=== PATIENT | female | born 1975 | race Caucasian/White ===

== ENCOUNTER 2017-02-26 08:39 | Emergency (ER) | payer SELFPAY ==
[~2017-02-26] VITALS: Ht 165.1 cm; Wt 79.0 kg
[2017-02-26] MEDS ORDERED: KETOROLAC 60MG/2ML VIAL IM ONE (09:45)
[2017-02-26 11:40] VITALS: BP 110/71
== END 2017-02-26 11:43 | disposition home or self-care (01) ==
LOC: ER 09:26
DX: M54.12 Radiculopathy, cervical region (principal); Z98.890 Other specified postprocedural states
CPT/HCPCS: 72125; 81025; 96372; 99284; J1885; Z7610

== ENCOUNTER 2017-08-11 17:36 | Emergency (ER) | payer SELFPAY ==
[~2017-08-11] VITALS: Ht 160 cm; Wt 73.0 kg
[2017-08-11 17:38] VITALS: BP 118/75
[2017-08-11] MEDS ORDERED: IBUP-2028 PO (17:41)
== END 2017-08-11 20:56 | disposition left against medical advice (07) ==
LOC: ER 18:35
DX: Z53.21 Procedure and treatment not carried out due to patient leaving prior to being seen by health care provider (principal)

== ENCOUNTER 2018-06-04 11:35 | Emergency (ER) | payer OTHER ==
[~2018-06-04] VITALS: Ht 165.1 cm; Wt 75.0 kg
[~2018-06-04 11:35] MED LIST: IBUP-2028 PO
[2018-06-04] MEDS ORDERED: ONDANSETRON HCL 4MG/2ML INJ IV STA (13:12)
[2018-06-04] MEDS ORDERED: SODIUM CHLORIDE 0.9% 1,000 ML IV ONE (13:12)
[2018-06-04] MEDS ORDERED: VISCOUS LIDOCAINE 2% 15 ML UDC PO STA (13:12)
[2018-06-04] MEDS ORDERED: MAGNESIUM/ALUMINUM HYDROXIDE/SIMETHICONE 30ML UDC PO STA (13:12)
[2018-06-04 13:29] LABS: BASOPHILS % 0.2 % (0.0-2.0); EOSINOPHILS % 1.2 % (0.0-5.0); HEMOGLOBIN. 14.1 g/dL (12.0-16.0); LYMPHOCYTES % 12.4 % (20.0-50.0); MEAN CORPUSCULAR VOLUME 83.6 fL (81.0-99.0); MEAN PLATELET VOLUME 9.3 fl (7.4-10.4); MONOCYTES % 5.6 % (2.0-8.0); NEUTROPHILS % 80.6 % (40.0-76.0); PLATELET 231 x1000/uL (130-400); RED BLOOD CELL COUNT 5.02 mill/uL (4.2-5.4); RED CELL DISTRIBUTION WIDTH 13.8 % (11.6-14.6)
[2018-06-04 13:31] LABS: CLARITY URINE TURBID (CLEAR); COLOR URINE AMBER (YELLOW); KETONES URINE TRACE (NEGATIVE); LEUKOCYTE ESTERASE URINE 1+ (NEGATIVE); NITRITE URINE NEGATIVE (NEGATIVE); OCCULT BLOOD URINE NEGATIVE (NEGATIVE); PH URINE 5.5 (4.5-8.0); PROTEIN URINE NEGATIVE (NEGATIVE); UROBILINOGEN URINE 0.2 E.U./dL (0.2-1.0)
[2018-06-04 13:36] LABS: CHLORIDE 108 mEq/L (98-107)
[2018-06-04 13:37] LABS: PROTHROMBIN TIME 10.4 sec (9.1-11.1)
[2018-06-04 13:46] LABS: HCG SCREEN NEGATIVE
[2018-06-04] MEDS ORDERED: KETOROLAC 30MG/ML VIAL IV ONE (17:00)
[2018-06-04] MEDS ORDERED: METOCLOPRAMIDE HCL 10MG/2ML VIAL IV ONE (17:00)
[2018-06-04] MEDS ORDERED: MORPHINE SULFATE 2 MG/ML CPJ (NOT FOR IM USE) IV ONE (17:00)
[2018-06-04 17:39] VITALS: BP 116/68
== END 2018-06-04 20:50 | disposition home or self-care (01) ==
LOC: ER 11:35
DX: R10.13 Epigastric pain (principal); R19.7 Diarrhea, unspecified
CPT/HCPCS: 36415; 76700; 80053; 81003; 81025; 83690; 84703; 85025; 85610; 93005; 96361; 96374; 96375; 99285; J1885; J2270; J2405; J2765; J7030

== ENCOUNTER 2020-07-09 11:50 | Emergency (ER) | payer MEDICAID, OTHER ==
[~2020-07-09] VITALS: Ht 167.6 cm; Wt 90.0 kg
[2020-07-09] MEDS ORDERED: FAMOTIDINE 20MG TABLET PO ONE (12:15)
[2020-07-09] MEDS ORDERED: VISCOUS LIDOCAINE 2% 15 ML UDC PO ONE (12:15)
[2020-07-09] MEDS ORDERED: MAGNESIUM/ALUMINUM HYDROXIDE/SIMETHICONE 30ML UDC PO ONE (12:15)
[2020-07-09 14:56] VITALS: BP 121/76
== END 2020-07-09 14:57 | disposition home or self-care (01) ==
LOC: ER 11:59
DX: R10.13 Epigastric pain (principal); R11.0 Nausea; Z98.890 Other specified postprocedural states; Z88.0 Allergy status to penicillin
CPT/HCPCS: 81025; 99284